=== PATIENT | male | born 1965 | race African-American/Black ===

== ENCOUNTER 2018-09-16 06:55 | Emergency (ER) | payer OTHER ==
[~2018-09-16] VITALS: Ht 170.2 cm; Wt 90.7 kg
--- NOTE | 2018-09-16 07:22 | Emergency Room Report ---
History of Present Illness General Chief Complaint: To Be Triaged Source: Patient, Significant Other Present Illness HPI Patient presents with right foot pain. He was lifting weights and dropped the weight on his foot yesterday. It's been swollen. He has been icing it and elevating it. There is no numbness. The pain is 10/10 at this time, aching and not radiating. It's worse when the foot is dependent. The patient reports renal dysfunction and states he can't take nonsteroidal anti -inflammatory medication. No fevers or chills, chest pain, cough, nausea, vomiting, diarrhea, dysuria or back pain. Allergies: Uncoded Allergies: SULFA (Allergy, Unknown, 09/16/18) Patient History Past Medical History: see triage record Social History: Reports: smoking Social History Narrative with significant other Reviewed Nursing Documentation: PMH: Agreed; PSxH: Agreed Review of Systems Constitutional: Denies: fever Musculoskeletal: Reports: see HPI Skin: Denies: rash, lesions Neurological: Reports: see HPI Hematologic/Lymphatic: Denies: easy bleeding All Other Systems: negative except mentioned in HPI Physical Exam Vital Signs Date Time Temp Pulse Resp B/P (MAP) Pulse Ox O2 Delivery O2 Flow Rate FiO2 09/16/18 07:23 98.2 72 25 100 Room Air 09/16/18 07:49 137/98 Sp02 EP Interpretation: reviewed, normal General Appearance: well appearing, no apparent distress, GCS 15 Head: normocephalic, atraumatic Eyes: bilateral eye normal inspection, bilateral eye PERRL ENT: hearing grossly normal, normal voice, moist mucus membranes Neck: full range of motion, supple Respiratory: no respiratory distress, speaking full sentences Cardiovascular #2: 2+ radial (R), 2+ dorsalis pedis (R) Gastrointestinal: normal inspection Musculoskeletal: no calf tenderness, swelling - Dorsum of right foot. Ankle ligaments are normal and nontender. Neurologic: alert, oriented x3, sensory intact, other - Able to wiggle toes Psychiatric: mood/affect normal Skin: no rash - No hematoma but swelling Medical Decision Making Diagnostic Impression: Primary Impression: Crush injury of right foot Qualified Codes: S97.81XA - Crushing injury of right foot, initial encounter ER Course Patient presents with right foot injury yesterday. I differential includes crush injury, fracture, contusion amongst others. Neurovascular is intact at this time. X-rays indicated as well as analgesia. X-rays are negative for fracture. Pain is somewhat improved. Randolph is applied by me with good neurovascular after application. This was checked by me. Patient provided crutches. Discussed findings with patient and significant other. Patient stable for outpatient observation and treatment. Other X-Ray Diagnostic Results Other X-Ray Diagnostic Results : X-Ray ordered: R foot # of Views/Limited Vs Complete: 3 View Indication: Pain EP Interpretation: Yes Interpretation: no dislocation, no fractures, other - FB and STS Impression: Other Electronically Signed by: Electronically signed by Alex Nelson MD Last Vital Signs Date Time Temp Pulse Resp B/P (MAP) Pulse Ox O2 Delivery O2 Flow Rate FiO2 09/16/18 08:26 98.3 68 23 137/98 100 Room Air Status: improved Disposition: HOME, SELF-CARE Condition: Improved Scripts Hydrocodone Bit/Acetaminophen 5-325* (NORCO 5-325*) 1 Each Tablet 1 TAB ORAL Q6H PRN for For Pain, #10 TAB 0 Refills Prov: Alex Nelson MD 09/16/18 Alex Nelson MD September 16, 2018 07:22
[2018-09-16] MEDS ORDERED: oxyCODONE HCL/Acetaminophen 5/325mg ORAL ONE (07:30)
[2018-09-16 07:49] VITALS: BP 137/98
[2018-09-16] MEDS ORDERED: Bacitracin Oint UD TOPIC ONE (08:00)
[2018-09-16] MEDS ORDERED: NORCO 5-325 TA1 EACH ORAL (08:04)
[2018-09-16 08:26] VITALS: BP 137/98
--- NOTE | 2018-09-16 11:37 | Diagnostic Imaging Report ---
Indication: Foot pain and trauma Technique: 3 views right foot Comparison: none Findings: Radiopaque foreign body measuring 6 mm length projects within the soft tissues lateral and inferior to the base of the fifth metacarpal. No acute fractures. No dislocations. The joint spaces are preserved. Impression: No acute bony trauma Positive for foreign body, acuity indeterminate, as described This agrees with the preliminary interpretation reported by the emergency room physician in the electronic medical record
== END 2018-09-16 08:20 | disposition home or self-care (01) ==
LOC: EMR 07:25
DX: S97.81XA Crushing injury of right foot, initial encounter (principal); W20.8XXA Other cause of strike by thrown, projected or falling object, initial encounter; Y92.9 Unspecified place or not applicable; Z88.2 Allergy status to sulfonamides; F17.200 Nicotine dependence, unspecified, uncomplicated
CPT/HCPCS: 99283